=== PATIENT | male | born 2000 | race Caucasian/White ===

== ENCOUNTER 2021-08-22 13:45 | Emergency (ER) | payer BC ==
[~2021-08-22] VITALS: Ht 185.4 cm; Wt 79.5 kg
[2021-08-22 14:04] VITALS: TEMP 98
[2021-08-22 16:50] VITALS: BP 127/86; PULSE 88
== END 2021-08-22 16:52 | disposition home or self-care (01) ==
LOC: COL.ER 13:45
DX: S61.211A Laceration without foreign body of left index finger without damage to nail, initial encounter (principal); Z23 Encounter for immunization; W26.0XXA Contact with knife, initial encounter